=== PATIENT | female | born 1990 | race African-American/Black ===

== ENCOUNTER 2017-08-23 10:18 | Emergency (ER) | payer OTHER ==
[~2017-08-23] VITALS: Ht 157.5 cm; Wt 52.2 kg
[2017-08-23 10:30] VITALS: BP 105/74
[2017-08-23] MEDS ORDERED: ACETAMINOPHEN 325 MG TAB PO ONE (13:30)
== END 2017-08-23 14:55 | disposition home or self-care (01) ==
LOC: ER 10:18
DX: R51 Headache (principal); M54.5 Low back pain; V43.52XA Car driver injured in collision with other type car in traffic accident, initial encounter; Y93.89 Activity, other specified; Y99.8 Other external cause status; Y92.410 Unspecified street and highway as the place of occurrence of the external cause
CPT/HCPCS: 99282; J7030

== ENCOUNTER 2021-08-16 09:29 | Emergency (ER) | payer OTHER ==
[~2021-08-16] VITALS: Ht 157.5 cm; Wt 64.0 kg
[2021-08-16 09:29] VITALS: BP 117/73
[2021-08-16] MEDS ORDERED: LIDOCAINE 1%HCL (LOCAL ANESTH) 10 ML MDV ONE (10:29)
[2021-08-16] MEDS ORDERED: LIDOCAINE 1% HCL (LOCAL ANESTH.) INJ 20ML MDV IJ ONE (10:30)
[2021-08-16] MEDS ORDERED: cefTRIAXone SOD 1,000 MG VL IM ONE (10:30)
[2021-08-16] MEDS ORDERED: CEPH-509 PO (10:41)
[2021-08-16] MEDS ORDERED: ACET-1080 PO (10:41)
== END 2021-08-16 11:07 | disposition home or self-care (01) ==
LOC: ER 09:29
DX: N61.1 Abscess of the breast and nipple (principal); Z79.899 Other long term (current) drug therapy
CPT/HCPCS: 10060; 87077; 87186; 87205; 96372; 99283; J0696; J2001